=== PATIENT | male | born 1975 | race Caucasian/White ===

== ENCOUNTER 2023-05-19 17:27 | Inpatient (IN) | payer MEDICAID ==
[~2023-05-19] VITALS: Ht 167.6 cm; Wt 54.5 kg
[2023-05-19 18:21] LABS: BASOPHILS % (AUTO) 0.5 % (0.0-2.0); EOSINOPHILS % (AUTO) 1.1 % (1.0-6.0); HEMATOCRIT 42.5 % (41-53); HEMOGLOBIN 14.5 g/dL (13.5-17.5); LYMPHOCYTES % (AUTO) 23.3 % (22.0-44.0); MEAN CORPUSCULAR HEMOGLOBIN 31.1 pg (26.0-34.0); MEAN CORPUSCULAR HGB CONC 34.2 G/dL (31.0-37.0); MEAN CORPUSCULAR VOLUME 91 fL (80-100); MONOCYTES # (AUTO) 0.6 K/uL (0.1-1.0); MONOCYTES % (AUTO) 7.1 % (2.0-9.0); NEUTROPHILS # (AUTO) 5.9 K/uL (1.8-7.7); PLATELET COUNT (AUTO) 281 K/uL (150-450); RED BLOOD CELL COUNT(AUTO) 4.67 MIL/uL (4.50-5.90); RED CELL DISTRIBUTION WIDTH 13.2 % (11.5-14.5); WHITE BLOOD COUNT (AUTO) 8.7 K/uL (4.5-11.0)
[2023-05-19 18:28] LABS: ANION GAP 9 mmol/L (8-16); CALCIUM, TOTAL 8.7 mg/dL (8.8-10.5); CARBON DIOXIDE 27 mmol/L (22-29); CHLORIDE 100 mmol/L (98-107); CREATININE 0.84 mg/dL (0.60-1.30); GLOMERULAR FILTR. RATE CALC > 60 mL/min (>60); GLUCOSE,RANDOM 84 mg/dL (70-110); POTASSIUM 4.2 mmol/L (3.5-5.1); SODIUM SERUM 136 mmol/L (136-145); UREA NITROGEN, BLOOD 16 mg/dL (7-18)
[2023-05-19] MEDS ORDERED: LEVO75 PO (18:28)
[2023-05-19 18:36] LABS: ALANINE AMINOTRANSFERASE 18 U/L (12-78); ALBUMIN 3.9 g/dL (3.4-5.0); ALKALINE PHOSPHATASE 54 U/L (46-116); ASPARTATE AMINOTRANSFERASE 21 U/L (15-37); BILIRUBIN,TOTAL 0.6 mg/dL (0.1-1.0); TOTAL PROTEIN, SERUM 7.8 g/dL (6.4-8.2)
[2023-05-19 18:50] LABS: COVID AG,FIA SOURCE NASAL SWAB
[2023-05-19 19:09] LABS: ALCOHOL, BLOOD (SERUM) < 3 mg/dL (0-10)
[2023-05-19 19:22] LABS: SARS-COV2 (COVID) ANTIGEN,FIA Negative (Negative)
[2023-05-19 19:41] LABS: APPEARANCE,URINE HAZY (CLEAR); BILIRUBIN,URINE NEGATIVE (NEGATIVE); COLOR,URINE YELLOW (YELLOW); GLUCOSE, URINE (UA) NEGATIVE (NEGATIVE); LEUKOCYTE ESTERASE ,URINE NEGATIVE (NEGATIVE); NITRATE,URINE NEGATIVE (NEGATIVE); OCCULT BLOOD,URINE NEGATIVE (NEGATIVE); PROTEIN,URINE 30-70 mg/dL (NEGATIVE); SPECIFIC GRAVITIY, URINE 1.028 (1.003-1.030); UROBILINOGEN,URINE <=1.0 mg/dL (<=1.0)
[2023-05-19 19:49] LABS: ALCOHOL, URINE DRUG SCREEN NEGATIVE (NEGATIVE); AMPHET/METH SCREEN,URINE NEGATIVE (NEGATIVE); BARBITURATE SCREEN, URINE NEGATIVE (NEGATIVE); BENZODIAZEPINES SCREEN,URINE NEGATIVE (NEGATIVE); CANNABINOID SCREEN,URINE NEGATIVE (NEGATIVE); COCAINE SCREEN,URINE NEGATIVE (NEGATIVE); METHADONE SCREEN, URINE NEGATIVE (NEGATIVE); OPIATE SCREEN,URINE NEGATIVE (NEGATIVE); PHENCYCLIDINE SCREEN,URINE NEGATIVE (NEGATIVE)
[2023-05-19 22:50] VITALS: BP 123/84; PULSE 60; RESP 18; TEMP 97.7; O2SAT 97
[2023-05-20] MEDS ORDERED: NICOTINE POLACRILEX 2 MG LOZENGE PO PRN (06:30)
[2023-05-20] MEDS ORDERED: ACETAMINOPHEN 325 MG TABLET PO PRN (07:15)
[2023-05-20] MEDS ORDERED: NICOTINE 14 MG/24 HOUR PATCH TD PRN (07:15)
[2023-05-20] MEDS ORDERED: MAG HYDROX/ALUMINUM HYD/SIMETH ES 30 ML SUSPENSION UDCUP PO PRN (07:15)
[2023-05-20] MEDS ORDERED: ONDANSETRON HCL 4 MG TABLET PO PRN (07:15)
[2023-05-20] MEDS ORDERED: GuaiFENesin/D-METHORPHAN [SUGAR-FREE] 200-20MG/10 ML SYRUP UDCUP PO PRN (07:15)
[2023-05-20] MEDS ORDERED: MAGNESIUM HYDROXIDE SUSPENSION 30 ML UDCUP PO PRN (07:15)
[2023-05-20] MEDS ORDERED: ALBUTEROL SULFATE HFA 90 MCG/PUFF 8 GM INHALER IH PRN (07:15)
[2023-05-20] MEDS ORDERED: CloNIDine HCL 0.1 MG TABLET PO PRN (07:15)
[2023-05-20] MEDS ORDERED: DOCUSATE SODIUM 100 MG CAPSULE PO PRN (07:15)
[2023-05-20] MEDS ORDERED: IBUPROFEN 400 MG TABLET PO PRN (07:15)
[2023-05-20] MEDS ORDERED: PETROLATUM,WHITE 28 GM JELLY TP PRN (07:15)
[2023-05-20] MEDS ORDERED: LOPERAMIDE HCL 2 MG CAPSULE PO PRN (07:15)
[2023-05-20] MEDS: LEVOTHYROXINE SODIUM 50 MCG TABLET PO SCH (07:22)
[2023-05-20 08:10] VITALS: BP 124/83; PULSE 75; RESP 16; TEMP 98; O2SAT 96
[2023-05-20] MEDS: LORazepam 2 MG TABLET PO PRN (09:06)
[2023-05-20] MEDS: HALOPERIDOL 5 MG TABLET PO PRN (09:06)
[2023-05-20 20:26] VITALS: BP 121/72; PULSE 89; RESP 18; TEMP 97.8; O2SAT 97
[2023-05-20] MEDS: ZOLPIDEM TARTRATE 10 MG TABLET PO PRN (21:40)
[2023-05-21 08:35] VITALS: BP 118/60; PULSE 72; RESP 18; TEMP 97.6; O2SAT 100
[2023-05-21] MEDS: HALOPERIDOL 5 MG TABLET PO SCH (10:08)
[2023-05-21 10:18] LABS: HEMOGLOBIN A1C 5.1 % (3.8-5.6)
[2023-05-21 10:37] LABS: THYROID STIMULATING HORMONE 41.47 uIU/mL (0.36-3.74)
[2023-05-21 10:43] LABS: APPEARANCE,URINE HAZY (CLEAR); BILIRUBIN,URINE NEGATIVE (NEGATIVE); COLOR,URINE YELLOW (YELLOW); GLUCOSE, URINE (UA) NEGATIVE (NEGATIVE); KETONES,URINE NEGATIVE (NEGATIVE); LEUKOCYTE ESTERASE ,URINE NEGATIVE (NEGATIVE); NITRATE,URINE NEGATIVE (NEGATIVE); OCCULT BLOOD,URINE NEGATIVE (NEGATIVE); PH,URINE 6.5 (5.0-8.0); PH,URINE DRUG SCREEN 6.5 (5.0-8.0); PROTEIN,URINE TRACE mg/dL (NEGATIVE); SPECIFIC GRAVITIY, URINE 1.027 (1.003-1.030); UROBILINOGEN,URINE <=1.0 mg/dL (<=1.0)
[2023-05-21 10:55] LABS: CHOL/HDL RATIO 2.1 (4.2-7.3)
[2023-05-21 10:57] LABS: ALCOHOL, URINE DRUG SCREEN NEGATIVE (NEGATIVE); AMPHET/METH SCREEN,URINE NEGATIVE (NEGATIVE); BARBITURATE SCREEN, URINE NEGATIVE (NEGATIVE); BENZODIAZEPINES SCREEN,URINE NEGATIVE (NEGATIVE); CANNABINOID SCREEN,URINE NEGATIVE (NEGATIVE); COCAINE SCREEN,URINE NEGATIVE (NEGATIVE); METHADONE SCREEN, URINE NEGATIVE (NEGATIVE); OPIATE SCREEN,URINE NEGATIVE (NEGATIVE); PHENCYCLIDINE SCREEN,URINE NEGATIVE (NEGATIVE)
[2023-05-21] MEDS: HALOPERIDOL 10 MG TABLET PO SCH (20:13)
[2023-05-21 20:24] VITALS: BP 117/76; PULSE 97; RESP 18; TEMP 97.8; O2SAT 98
[2023-05-22 08:53] VITALS: BP 116/77; PULSE 69; RESP 17; TEMP 97.9; O2SAT 97
[2023-05-22 20:22] VITALS: BP 108/90; PULSE 98; RESP 17; TEMP 98; O2SAT 98
[2023-05-23 08:30] VITALS: BP 117/60; PULSE 60; RESP 17; TEMP 97; O2SAT 100
[2023-05-23 20:35] VITALS: BP 131/70; PULSE 80; TEMP 97.6; O2SAT 97
[2023-05-24 08:38] VITALS: BP 122/68; PULSE 62; RESP 17; TEMP 97.9; O2SAT 98
[2023-05-24 21:16] VITALS: BP 101/65; PULSE 64; TEMP 98.2; O2SAT 99
[2023-05-25 08:22] VITALS: BP 114/69; PULSE 65; RESP 17; TEMP 97.7; O2SAT 99
[2023-05-25 20:31] VITALS: BP 112/72; PULSE 81; RESP 18; TEMP 97.3; O2SAT 97
[2023-05-26 08:27] VITALS: BP 104/74; PULSE 62; RESP 17; TEMP 97.8; O2SAT 96
[2023-05-27 09:33] VITALS: BP 100/60; PULSE 70; RESP 18; TEMP 98; O2SAT 100
[2023-05-27 20:18] VITALS: BP 122/76; PULSE 59; RESP 19; TEMP 97.7; O2SAT 97
[2023-05-28 08:31] VITALS: BP 105/65; PULSE 80; RESP 17; TEMP 98; O2SAT 100
[2023-05-28 22:00] VITALS: BP 122/70; PULSE 73; RESP 18; TEMP 95.7; O2SAT 98
[2023-05-29 08:39] VITALS: BP 107/68; PULSE 60; RESP 17; TEMP 97.8; O2SAT 98
[2023-05-29 21:37] VITALS: BP 118/72; PULSE 63; RESP 15; TEMP 98; O2SAT 98
[2023-05-30 08:41] VITALS: BP 103/71; PULSE 66; RESP 17; TEMP 97.6; O2SAT 96
[2023-05-30 21:58] VITALS: BP 100/56; PULSE 74; RESP 16; TEMP 97.7; O2SAT 99
[2023-05-31] MEDS ORDERED: HALO5TAB23 PO (08:11)
[2023-05-31] MEDS ORDERED: HALO10TA21 PO (08:13)
[2023-05-31 09:44] VITALS: BP 115/63; PULSE 60; RESP 17; TEMP 98.4; O2SAT 96
[2023-05-31 20:32] VITALS: BP 118/74; PULSE 73; TEMP 97.1; O2SAT 100
[2023-06-01 08:38] VITALS: BP 109/73; PULSE 76; RESP 17; TEMP 98; O2SAT 97
[2023-06-01 20:33] VITALS: BP 123/84; PULSE 74; TEMP 97.8; O2SAT 98
[2023-06-02 08:26] VITALS: BP 104/60; PULSE 60; RESP 17; TEMP 98.2; O2SAT 96
[2023-06-02 20:22] VITALS: BP 124/61; PULSE 63; RESP 17; TEMP 97.7; O2SAT 100
[2023-06-03 08:16] VITALS: BP 117/73; PULSE 73; RESP 17; TEMP 98; O2SAT 95
[2023-06-03 20:36] VITALS: BP 143/67; PULSE 63; RESP 17; TEMP 97.1; O2SAT 98
[2023-06-04 09:03] VITALS: BP 98/64; PULSE 59; RESP 17; TEMP 97.4; O2SAT 97
[2023-06-04 20:31] VITALS: BP 101/63; PULSE 60; RESP 18; TEMP 97.8; O2SAT 98
[2023-06-05 08:56] VITALS: BP 102/69; PULSE 66; RESP 17; TEMP 98.4; O2SAT 98
[2023-06-05 20:32] VITALS: BP 111/73; PULSE 69; TEMP 97.7; O2SAT 98
[2023-06-06 08:33] VITALS: BP 108/72; PULSE 66; RESP 17; TEMP 97.7; O2SAT 98
[2023-06-06 20:29] VITALS: BP 131/83; PULSE 72; TEMP 97.6; O2SAT 99
[2023-06-07 08:41] VITALS: BP 109/75; PULSE 63; RESP 17; TEMP 98.4; O2SAT 99
[2023-06-07] MEDS ORDERED: LEVO50 PO ×2 (11:57→12:23)
[2023-06-07] MEDS ORDERED: HALO10TA21 PO (12:23)
[2023-06-07] MEDS ORDERED: HALO5TAB23 PO (12:23)
== END 2023-06-07 13:27 | disposition home or self-care (01) | DRG 750 ==
LOC: EMS 17:31 → B3A 21:12
PROVIDERS: ADMIT Psychiatry & Neurology Psychiatry; ATTEND Psychiatry & Neurology Psychiatry
PROC: GZHZZZZ Group Psychotherapy (ICD-10-PCS; principal; 2023-05-20)
PROC: GZ52ZZZ Individual Psychotherapy, Cognitive (ICD-10-PCS; 2023-05-20)
PROC: GZ51ZZZ Individual Psychotherapy, Behavioral (ICD-10-PCS; 2023-05-20)
DX: F25.0 Schizoaffective disorder, bipolar type (principal); R45.851 Suicidal ideations; E03.9 Hypothyroidism, unspecified; F17.210 Nicotine dependence, cigarettes, uncomplicated; F41.9 Anxiety disorder, unspecified; Z20.822 Contact with and (suspected) exposure to COVID-19; Z79.899 Other long term (current) drug therapy; Z88.0 Allergy status to penicillin; Z88.1 Allergy status to other antibiotic agents; Z65.3 Problems related to other legal circumstances
CPT/HCPCS: 80053; 80061; 80307; 81003; 83036; 84132; 84443; 85025; 99285; G0480